=== PATIENT | male | born 1985 | race Caucasian/White ===

== ENCOUNTER 2017-02-21 16:02 | Emergency (ER) | payer SELFPAY ==
[~2017-02-21] VITALS: Ht 177.8 cm; Wt 56.9 kg
[2017-02-21 17:54] LABS: HEMATOCRIT 50.5 % (39.2-51.8); HEMOGLOBIN 17.6 g/dL (13.7-18.0); WHITE BLOOD COUNT 11.5 x10^3/uL (3.4-10)
[2017-02-21 18:04] LABS: ASPARTATE AMINO TRANSFERASE 15 U/L (15-37); BLOOD UREA NITROGEN 8 mg/dL (7-18)
[2017-02-21 19:58] VITALS: BP 123/63
== END 2017-02-21 20:01 | disposition home or self-care (01) ==
LOC: ED 17:04
DX: N41.0 Acute prostatitis (principal)
CPT/HCPCS: 36415; 74020; 80053; 81001; 85025; 87491; 87591; 99285